=== PATIENT | male | born 1950 | race Caucasian/White ===

== ENCOUNTER 2017-07-08 20:26 | Emergency (ER) | payer OTHER, MEDICARE ==
[~2017-07-08] VITALS: Ht 170.2 cm; Wt 82.0 kg
[~2017-07-08 20:26] MED LIST: ASPIRIN CHEWABL81 MG PO; ATORVASTATIN CA40 MG PO; LISINOPRIL10 MG PO; LOPRESSOR12.5 MG PO; PANTOPRAZOLE SO40 M1 PO; PLAVIX75 MG PO; ZESTRIL5 M1 PO
[2017-07-09] MEDS ORDERED: PERCOCET 5/325M1 TAB PO (01:16)
[2017-07-09] MEDS ORDERED: AUGMENTIN875TAB PO (01:16)
[2017-07-09 01:40] VITALS: BP 110/75
== END 2017-07-09 01:40 | disposition home or self-care (01) | DRG 605 ==
LOC: ED 20:26
DX: S61.152A Open bite of left thumb with damage to nail, initial encounter (principal); S81.851A Open bite, right lower leg, initial encounter; I25.2 Old myocardial infarction; W54.0XXA Bitten by dog, initial encounter; Y92.009 Unspecified place in unspecified non-institutional (private) residence as the place of occurrence of the external cause

== ENCOUNTER 2022-08-09 16:40 | Emergency (ER) | payer OTHER, MEDICARE ==
[~2022-08-09] VITALS: Ht 170.2 cm; Wt 70.0 kg
[~2022-08-09 16:40] MED LIST changes: +AUGMENTIN875TAB PO; +PERCOCET 5/325M1 TAB PO
[2022-08-09] MEDS ORDERED: KEFLEX500 MG PO (17:06)
[2022-08-09 17:42] VITALS: BP 107/66
== END 2022-08-09 17:47 | disposition home or self-care (01) | DRG 605 ==
LOC: WW 16:40 → ED 16:48 → WW 17:47
PROC: 0HQGXZZ Repair Left Hand Skin, External Approach (ICD-10-PCS; principal; 2022-08-09)
DX: S61.412A Laceration without foreign body of left hand, initial encounter (principal); I10 Essential (primary) hypertension; I25.10 Atherosclerotic heart disease of native coronary artery without angina pectoris; W26.8XXA Contact with other sharp object(s), not elsewhere classified, initial encounter; Y92.009 Unspecified place in unspecified non-institutional (private) residence as the place of occurrence of the external cause

== ENCOUNTER 2022-08-10 16:43 | Emergency (ER) | payer OTHER, MEDICARE ==
[~2022-08-10] VITALS: Ht 170.2 cm; Wt 70.4 kg
[~2022-08-10 16:43] MED LIST changes: +KEFLEX500 MG PO
[2022-08-10 20:54] VITALS: BP 110/56
== END 2022-08-10 21:17 | disposition home or self-care (01) | DRG 605 ==
LOC: ED 16:43
PROC: 0JQF3ZZ Repair Left Upper Arm Subcutaneous Tissue and Fascia, Percutaneous Approach (ICD-10-PCS; principal; 2022-08-10)
DX: S41.112A Laceration without foreign body of left upper arm, initial encounter (principal); I10 Essential (primary) hypertension; I25.10 Atherosclerotic heart disease of native coronary artery without angina pectoris; W61.92XA Struck by other birds, initial encounter; Y92.009 Unspecified place in unspecified non-institutional (private) residence as the place of occurrence of the external cause